=== PATIENT | male | born 1955 | race African-American/Black ===

== ENCOUNTER 2016-12-10 19:06 | Emergency (ER) | payer BC ==
[2016-12-10 18:39] LABS: HEMATOCRIT 32.5 % (40.0-51.0); HEMOGLOBIN 10.2 g/dL (13.6-17.8); MEAN CORPUS HGB CONC 31.4 g/dL (32.0-36.0); MEAN CORPUSCULAR HEMOGLOB 26.8 pg (26.0-34.0); MEAN PLATELET VOLUME 12.2 fL (9.2-13.0); RBC DISTRIBUTION WIDTH 16.9 % (12.0-16.0)
[2016-12-10 18:40] LABS: ER CBC TAT 0 Hrs 12 Mins; MEAN CORPUSCULAR VOLUME 85.5 fL (80-100); PLATELET COUNT 230 10/3/uL (150-400); WHITE BLOOD CELLS 41.2 10/3/uL (4.5-10.5)
[2016-12-10 18:41] LABS: MANUAL DIFF YES %
[2016-12-10 18:48] LABS: A/G RATIO 1.1 (0.7-1.9); ALBUMIN 3.5 G/DL (3.5-5.0); ALKALINE PHOSPHATASE 74 U/L (45-117); CALCIUM, SERUM 8.6 MG/DL (8.5-10.4); CHLORIDE, SERUM 96 MMOL/L (96-112); CO2 (CARBON DIOXIDE) 37 MMOL/L (24-34); GFR AFRICAN AMERICAN 47 ML/MIN (>=60); GFR NON AFRICAN AMERICAN 40 ML/MIN (>=60); SGOT(AST) 33 U/L (5-40); SGPT(ALT) 44 U/L (5-65); SODIUM, SERUM 140 MMOL/L (135-148); TOTAL BILIRUBIN 0.3 MG/DL (0-1.2); TOTAL PROTEIN 6.7 G/DL (6.0-8.5)
[2016-12-10 18:49] LABS: BUN (BLOOD UREA NITROGEN) 37 MG/DL (6-23); GLOBULIN 3.2 G/DL (2.5-4.1); GLUCOSE, SERUM 194 MG/DL (60-99); POTASSIUM, SERUM 4.9 MMOL/L (3.5-5.3)
[~2016-12-10 19:06] MED LIST: ALBUTEROL IH; ARIMIDEX1 PO; ARMOUR THYRO30 MG PO; ARMOUR THYROID PO; ATORVASTATIN PO; AUG875 PO; BACDS PO; BACTROINT TOP; BIOFLEX PO; BL CHROMIUM200 MCG OR; BL CHROMIUM200 MCG PO; BL FLAX SEED1000 MG PO; C5 PO; CARDCD240 PO; CARDCD360 PO; CHROMAX PO; CINNAMON PO; CIP5 PO; CLEOCIN300 MG PO; COREG25 PO; COUMADIN10 MG PO; DEMA20 PO; DHE1 OR; DHE1 PO; DSS PO; DURICEF PO; GARLIC PO; GLUCOPHAGE1000 MG PO; GLUCOSE TAB PO; IBU800 PO; INSULIN ASPART; JANTOVEN10 MG PO; JANTOVEN2.5 MG PO; L-ARGININE PO; LANTUS SC; LANTUSCART SC; LEVAQUIN750 MG PO; LEVITRA20 MG PO; LEVITRA5 PO; LIPITOR20 PO; LIPITOR40 PO; LISINOPRIL PO; LISINOPRIL40 MG PO; LOP100 PO; LOP25 PO; MAGNESIUM/ZINC PO; MAGOX4 PO; MATZIM PO; METOPROLOL PO; MIRALAXPKT PO; MULTIPLE VIT PO; MULTIVIT/MIN PO; MULTIVITAMI1 PO; MULTIVITAMIN CHEW PO; NAP500 PO; NORV10 PO; NOVOLOG SC; NOVOPEN SC; PCET PO; PHENTERMINE PO; PHENTERMINE37.5 MG PO; POT GLUCONAT595 M1 PO; POTASSIUM 99MG PO; POTASSIUM GLUCONATE PO; POTASSIUM PO; POTASSIUM95 MG PO; POTASSIUM99 M3 OR; PRIN20 PO; PROMEGA PO; T PO; TAZTIA X1 PO; TAZTIA X3 PO; THERGRANM PO; TOPROL XL200 MG PO; TOPXL100 PO; TORSEMIDE PO; TRIGOSAMINE PO; VIT D; VIT D PO; VITAMIN C100 MG PO; VITAMIN D31000 UNIT PO; VITC500 PO; WARFARIN PO; ZESTRIL40 MG PO; ZITHROMAX500 MG PO; ZYVOXPO PO; [UNRECOGNIZED DRUG - OTHER]; [UNRECOGNIZED DRUG - OTHER]; [UNRECOGNIZED DRUG - OTHER]; [UNRECOGNIZED DRUG - OTHER] PO
[2016-12-10 19:26] LABS: ANISOCYTOSIS 1+ (5-10/OIF) (0-5/OIF); ATYPICAL LYMPH MOD (6-10%) (0-5%); ER DIFF TAT 0 Hrs 58 Mins; LYMPHOCYTES 79 %; LYMPHOCYTES ABSOLUTE (CALC) 32.55 10/3/uL (0.67-4.30); MONOCYTES 3 %; MONOCYTES ABSOLUTE (CALC) 1.24 10/3/uL (0.21-1.20); NEUTROPHILS ABSOLUTE (CALC) 7.42 10/3/uL (2.02-8.40); NUCLEATED RED BLOOD CELLS 1 /100WBC (0); PLATELET ESTIMATE ADQ (ADEQUATE); POIKILOCYTOSIS 1+ (5-10/OIF) (0-5/OIF); SEGMENTED NEUTROPHIL (0) 18 %; TOTAL NUCLEATED CELLS 100
[2016-12-10 19:30] LABS: SMUDGE CELLS MOD
== END 2016-12-10 20:33 | disposition home or self-care (01) ==
LOC: ER 19:06
PROVIDERS: Emergency Medicine
PROC: 0YQ Anatomical Regions, Lower Extremities, Repair (ICD-10-PCS; principal; 2016-12-10)
DX: S91.114A Laceration without foreign body of right lesser toe(s) without damage to nail, initial encounter (principal); E11.65 Type 2 diabetes mellitus with hyperglycemia; C92.10 Chronic myeloid leukemia, BCR/ABL-positive, not having achieved remission; I11.0 Hypertensive heart disease with heart failure; I50.9 Heart failure, unspecified; Z89.411 Acquired absence of right great toe; Z95.0 Presence of cardiac pacemaker; Z88.1 Allergy status to other antibiotic agents; Z79.01 Long term (current) use of anticoagulants; Z79.4 Long term (current) use of insulin; Z79.899 Other long term (current) drug therapy; W45.8XXA Other foreign body or object entering through skin, initial encounter
CPT/HCPCS: 80053; 85025; 99283